=== PATIENT | female | born 1990 ===

== ENCOUNTER 2018-01-08 08:33 | Emergency (ER) | payer OTHER ==
[2018-01-08 08:44] VITALS: BMI 29.2
[2018-01-08 09:38] LABS: URINE CLARITY Turbid (Clear); URINE GLUCOSE (UA) 100 mg/dL (Normal)
[2018-01-08 09:39] LABS: PH,URINE 6.5 (5.0-8.0); URINE BILIRUBIN SMALL (NEGATIVE); URINE BLOOD 3+ (NEGATIVE); URINE PROTEIN >=300 mg/dL (NEGATIVE)
[2018-01-08 09:40] LABS: URINE LEUKOCYTE ESTERASE MODERATE Leu/uL (Negative)
[2018-01-08 09:41] LABS: HCG,QUALITATIVE URINE NEGATIVE (NEGATIVE)
[2018-01-08 09:42] LABS: URINE COLOR RED (YELLOW)
[2018-01-08 10:17] LABS: BASO # 0.1 K/uL (0.0-0.2); BASO % 0.6 % (0.0-2.0); EOS # 0.2 K/uL (0.0-0.7); EOS % 1.8 % (0.0-4.0); HEMOGLOBIN 10.4 g/dL (11.0-16.0); LYMPH # 1.8 K/uL (1.0-4.3); LYMPH % 14.3 % (20.0-40.0); MEAN CELL VOLUME 75.3 fL (81.0-99.0); MEAN CORPUSCULAR HEMOGLOBIN 24.4 pg (27.0-31.0); MEAN CORPUSCULAR HGB CONC 32.3 g/dL (33.0-37.0); MEAN PLATELET VOLUME 8.5 fL (7.2-11.7); MONO # 0.7 K/uL (0.0-0.8); MONO % 5.8 % (0.0-10.0); NEUT % 77.5 % (50.0-75.0); RBC 4.28 Mil/uL (3.80-5.20); RED CELL DISTRIBUTION WIDTH 13.6 % (11.5-14.5); WHITE BLOOD COUNT 12.9 K/uL (4.8-10.8)
[2018-01-08 10:31] LABS: ALB/GLOB RATIO 1.4 (1.0-2.1); ALBUMIN 4.4 g/dL (3.5-5.0); ALT/SGPT 25 U/L (9-52); AST/SGOT 14 U/L (14-36); BLOOD UREA NITROGEN 9 mg/dL (7-17); CALCIUM 9.3 mg/dl (8.6-10.4); GFR NON-AFRICAN AMERICAN > 60
[2018-01-08 12:00] VITALS: BP 106/74; PULSE 96; RESP 16; TEMP 99.2; O2SAT 96
[2018-01-08] MEDS ORDERED: cefTRIAXone IV 1 gm in Dextros 50 ML IVPB ONE (12:03)
[2018-01-08] MEDS ORDERED: cefTRIAXone 1 gm 1 GM/100 ML BAG IVPB ONE (12:26)
--- NOTE | 2018-01-08 13:25 | C.PDOC ---
History Of Present Illness 27-year-old female presents to the ED for evaluation of vaginal bleeding which has been intermittent for around 6 months. Patient states she suffered a miscarriage in July 2017. She has been taking control pills since September 2017 and stopped taking them about one week ago. Patient states her bleeding has continued after discontinuing the pills. Patient states for the past 3-4 days, she has been using up to 5 overnight sized pads per day. She reports nausea and denies vomiting. She reports her bleeding has been heavier and reports associated lower abdominal and back pain. Patient denies fever, chills. Time Seen by Provider: 01/08/18 09:07 Chief Complaint (Nursing): Female Genitourinary History Per: Patient History/Exam Limitations: no limitations Onset/Duration Of Symptoms: Days Current Symptoms Are (Timing): Still Present Past Medical History Reviewed: Historical Data, Nursing Documentation, Vital Signs Vital Signs: Last Vital Signs Temp 99.2 F 01/08/18 11:59 Pulse 96 H 01/08/18 11:59 Resp 16 01/08/18 11:59 BP 106/74 01/08/18 11:59 Pulse Ox 96 01/08/18 16:14 - Medical History PMH: No Chronic Diseases Surgical History: No Surg Hx Family History: States: Unknown Family Hx - Social History Hx Tobacco Use: Yes Hx Alcohol Use: Yes Hx Substance Use: No - Immunization History Hx Tetanus Toxoid Vaccination: No Hx Influenza Vaccination: No Hx Pneumococcal Vaccination: No Review Of Systems Gastrointestinal: Positive for: Nausea, Abdominal Pain. Negative for: Vomiting Genitourinary: Positive for: Vaginal Bleeding Musculoskeletal: Positive for: Back Pain Physical Exam - Physical Exam Appears: Non-toxic, No Acute Distress Skin: Normal Color, Warm, Dry Head: Atraumatic, Normacephalic Eye(s): bilateral: Normal Inspection Oral Mucosa: Moist Neck: Supple Chest: Symmetrical, No Deformity, No Tenderness Cardiovascular: Rhythm Regular, No Murmur Respiratory: Normal Breath Sounds, No Rales, No Rhonchi, No Wheezing Gastrointestinal/Abdominal: Soft, No Tenderness, No Guarding, No Rebound Back: No CVA Tenderness, Muscle Spasm (right paralumbar region ) Extremity: Normal ROM, Capillary Refill (less than 2 seconds ) Neurological/Psych: Oriented x3, Normal Speech, Normal Cognition ED Course And Treatment - Laboratory Results Result Diagrams: 01/08/18 10:12 01/08/18 10:12 O2 Sat by Pulse Oximetry: 96 (on RA) Pulse Ox Interpretation: Normal Medical Decision Making Medical Decision Making: Impression: 27 year old female with abdominal pain and vaginal bleeding Progress: Bloodwork, urinalysis ordered and reviewed. Motrin PO, Rocephin IV given. Patients labs are positive for urinary tract infection. Urine HCG is negative. pt with suprapubic pain and back pain with vag bleeding, not preg. +uti with nitrite pos; given one dose ceftriaxone in ed. d/c home with macrobid, f/u computer engineering technician 01/10/18 microbiology reviewed, e coli is sensitive to nitrofurantoin, which pt was discharged with. I spoke with patient at 1210, she is taking antibiotics, sts still has vaignal bleeding. pt has computer engineering technician appt next sat. pt advised to return to ed for heavy bleeding of one pad per hour. pt understands. Disposition Counseled Patient/Family Regarding: Studies Performed, Diagnosis, Need For Followup, Rx Given - Disposition Referrals: [facility] [Outside] [facility] [Outside] Disposition: HOME/ ROUTINE Disposition Time: 13:25 Condition: GOOD Additional Instructions: Please drink increased fluids. Take antibiotics as prescribed. Follow up with medical clinic and with gynecology. Return to ER for any worsening symptoms,. Prescriptions: Nitrofurantoin Macrocrystals [Macrobid] 100 mg PO BID #14 cap Instructions: Urinary Tract Infection, Adult (DC) Forms: General Discharge Instructions, [facility] (Slovenian), Work Excuse - Clinical Impression Clinical Impression: Urinary tract infection, DUB (dysfunctional uterine bleeding) - PA / BUSINESS DEVELOPMENT EXECUTIVE / Resident Statement MD/DO has reviewed & agrees with the documentation as recorded. - Scribe Statement The provider has reviewed the documentation as recorded by the Scribe (Rianna Evans) All medical record entries made by the Scribe were at my direction and personally dictated by me. I have reviewed the chart and agree that the record accurately reflects my personal performance of the history, physical exam, medical decision making, and the department course for this patient. I have also personally directed, reviewed, and agree with the discharge instructions and disposition.
== END 2018-01-08 14:03 | disposition home or self-care (01) ==
LOC: C.ER 08:33
DX: N39.0 Urinary tract infection, site not specified (principal); N93.8 Other specified abnormal uterine and vaginal bleeding
CPT/HCPCS: 80053; 81001; 84703; 85025; 87086; 87181; 96365; 99285; J0696